=== PATIENT | male | born 1975 | race Caucasian/White ===

== ENCOUNTER → 2021-06-25 08:37 | Outpatient (CLI) | payer OTHER, SELFPAY ==
--- NOTE | ~2021-06-25 | CT_ITS ---
EXAMINATION: CT abdomen pelvis wo/w con DATE: 06/25/2021 09:30 INDICATION: Gross hematuria TECHNIQUE: Computed tomography (CT) of the abdomen and pelvis was performed without intravenous contr ast. CT of the abdomen and pelvis was then performed with a total of 130 mL Omnipaque-350 intravenous contrast using a double-bolus technique for simultaneous opacification of the renal parenchyma and r enal collecting system. Automated exposure control and iterative reconstruction technique were employ ed. The dose-length product was 2047.19 mGy-cm. COMPARISON: 03/30/2019 FINDINGS: Minimal dependent atelectasis in the bilateral lower lobes. Mild bronchiectasis in the bilateral lowe r lungs. Heart size is normal. No pericardial or pleural effusion. Liver, gallbladder, spleen, pancre as and bilateral adrenal glands are normal. Bilateral kidneys are normal with normal symmetric parenc hymal enhancement, no urolithiasis or hydronephrosis. The bilateral ureters are opacified in their en tirety on the delayed images with no evident urothelial irregularities. Bladder is normal. Bowels inc luding the appendix are normal. Prostatomegaly which is disproportionate for age measuring 6.0 x 5.9 x 5.4 cm. No free intraperitoneal gas or fluid. No pathologically enlarged abdominal or pelvic lympha denopathy. Bones are unremarkable. IMPRESSION: 1. Normal kidneys, ureters and bladder with no urolithiasis. 2. Prostatomegaly which is disproportionate for age and would correlate for either prostatitis or kevan vated PSA levels. Reviewed, dictated and finalized at location A. IMPRESSION: 1. Normal kidneys, ureters and bladder with no urolithiasis. 2. Prostatomegaly which is disproportionate for age and would correlate for eit her prostatitis or elevated PSA levels.
--- NOTE | ~2021-06-25 | XR_ITS ---
XR abdomen w oblique DATE: 06/25/2021 09:30 INDICATION: Gross hematuria TECHNIQUE: AP and bilateral oblique views COMPARISON: 06/25/2021 CT abdomen pelvis FINDINGS: There is mild bilateral hydroureteronephrosis, likely secondary to prostate enlargement dem onstrated on 06/25/2021 CT abdomen pelvis examination. No renal mass lesion or intraluminal filling defect of the renal collecting systems is noted. No uret eral or urinary bladder mass lesion is evident. Nonspecific bowel gas pattern without evidence of obstruction. The psoas shadows are intact. No visce romegaly is evident. IMPRESSION: Mild bilateral hydroureteronephrosis, likely secondary to prostate enlargement Reviewed, dictated and finalized at [facility]. Reviewed, dictated and finalized at location A.
[2021-06-25 08:58] LABS: Estimated Glomerular Filt Rate 50
== END ==
PROVIDERS: PCP Physician Assistant; Visit Provider Urology
DX: R31.0 Gross hematuria (principal)
CPT/HCPCS: 74021; 74178; Q9967

== ENCOUNTER 2021-09-26 09:30 | Outpatient (CLI) | payer OTHER, SELFPAY | END 2021-09-26 09:31 | disposition home or self-care (01) | LOC: ANHSURGERY 09:34 | PROVIDERS: PCP Physician Assistant; Visit Provider Urology | DX: R31.0 Gross hematuria (principal); Z01.812 Encounter for preprocedural laboratory examination | CPT/HCPCS: 87086 ==

== ENCOUNTER → 2021-10-04 00:09 | Outpatient (CLI) | payer OTHER, SELFPAY ==
[2021-10-04 19:57] LABS: SARS-CoV-2 RNA PCR Negative
== END ==
PROVIDERS: PCP Physician Assistant; Visit Provider Urology
DX: Z01.812 Encounter for preprocedural laboratory examination (principal); Z20.822 Contact with and (suspected) exposure to COVID-19
CPT/HCPCS: C9803; U0003; U0005

== ENCOUNTER 2021-10-07 02:44 | Day surgery (SDC) | payer OTHER, SELFPAY ==
[2021-09-23 14:11] VITALS: BMI 29.9
--- NOTE | 2021-09-23 14:24 | PC.NURSE ---
Addendum entered by Ciarra Kingsley RN 09/23/21 14:29: MEDICATIONS TO DISCONTINUE: VITAMINS DATE TO TAKE LAST DOSE: 10/03/21 Original Note: Report to the Outpatient Waiting Room, entrance under the [place] [facility] located off [facility], at time 1:00 on date 10/07/21. OR Time: 3:00. - You and your visitor will be asked a series of questions to screen for COVID 19 for your protection. - A mask is required within the hospital. - Only one visitor is allowed at this time. Patient visitors will be guided where to wait when not with patient. Preoperative COVID Testing Requirements: No COVID Test needed if: (proof is required; if not received patient will have Rapid Test prior to entry) - Patient has received COVID Vaccine at least 14 days prior to procedure date or - Patient has positive COVID test result within last 90 days of surgery date. COVID Test needed if above criteria is not met If not COVID vaccinated a COVID test must be conducted within 72 hours of surgery and patient is asked to isolate self from time of testing until procedure. You will go to the [facility] for your COVID testing. The [facility] is located at the corner of [address] [facility]. COVID TEST 10/04 AT 9:00 You will only be called if COVID results are positive and your surgeon may reschedule your elective surgery date. Patients may have clear liquids (water, carbonated beverages, clear teas, apple juice) until 3 hours prior to surgery with a maximum of 20 ounces. - No food from midnight until time of surgery - Infants may have breast milk until 4 hours before surgery, infant formula 6 hours prior to surgery. - Children will be allowed to drink immediately following surgery. If applicable, please bring a bottle or sippy cup to assist with drinking. Juice, water, soda, and popsicles are readily available. For infants on formula, please bring formula the day of surgery. Pacifiers are allowed. Take the following medications with a SIP of water the morning of surgery: N/A Medications to discontinue per physician: N/A Date to take last dose: N/A Please no make-up, nail [place] gu[place], hairspray, perfume, deodorant, or body powder the day of surgery. No jewelry (including any body piercings) or valuables the day of surgery, leave them at home. Please take a shower or bath the night before, or the morning of, surgery with an antibacterial soap. Wear comfortable, loose fitting clothing. Children are encouraged to wear pajamas. - Jewelry must be removed prior to entering the operating room. Rings and piercings that are not removed may be cut off. - The hospital will not accept responsibility for valuables. - Please leave all valuables, including medications, at home the day of surgery. If you are going home after surgery, a licensed otr company driver must drive you home. - NO public transportation without another adult. - We recommend that an adult stay with you for 24 hours following discharge. - We also recommend that you do not drive, make important decision, drink alcoholic beverages, or take any drugs that were not prescribed by your health care provider for at least 24 hours after your discharge time. For Pediatric surgeries, we recommend two adults accompany the child home (only one inside the building at this time). Follow any additional instructions given to you from your surgeon. Telephone instructions given to SABINO HARRY and asked if any additional questions and then verbalized understanding. Patient advised to call surgeon office or pre surgery nurse liaison [phone] if any additional questions.
[2021-10-07] VITALS (9 sets, daily range): BP systolic 98–121; BP diastolic 66–90; PULSE 81–95; RESP 11–20; TEMP 36.5–37.3; O2SAT 96–100
--- NOTE | ~2021-10-07 | XR_ITS ---
EXAMINATION: XR urethrocystogram EXAM DATE: 10/07/2021 14:46 INDICATION: Retrograde cystourethrogram. TECHNIQUE: Fluoroscopy used during XR urethrocystogram performed by Dr. Romulo Sarmiento MD. Radiologist was not present for the imaging or procedure. Total fluoroscopic time of 17 seconds. Th e DAP for this procedure was 0.28 mGym2. A total of 43 images sent to PACS from the exam. There is no prior study for comparison. FINDINGS: There is short segment urethral stenosis of the urethra at the penoscrotal junction. Diffu sely narrow lumen to the prosthetic urethra commonly seen. There is imaged demonstrating presumed dil ation catheter in the urethra. Correlate with procedure note. IMPRESSION: Fluoroscopy used during retrograde cystourethrogram, probable urethral dilation. Reviewed, dictated and finalized at location A. NETWORK ENGINEER IMPRESSION: Fluoroscopy used during retrograde cystourethrogram, probable ureth ral dilation.
[2021-10-07] MEDS: LACTATED RINGERS 1,000 ML 30 ML IV CONT (12:30)
--- NOTE | 2021-10-07 12:31 | WPDANESEPPF ---
Anes - Initial Pre Proc Eval Procedure: Operation Date: 10/07/21 15:00 Proposed Procedures p Cystoscopy, Retrograde Urethrogram, Urethral Dilation - Romulo Sarmiento MD Date/Time: 10/07/21 12:31 Surgeon: Romulo Sarmiento MD Pre Op Diagnosis: urethral stricture, gross hematuria Patient Data Age: 45 Gender: M Height: 1.83 m Weight: 100 kg Allergies Allergy/AdvReac Type Severity Reaction Status Date / Time No Known Drug Allergies Allergy Unknown Verified 09/23/21 14:11 Home Medications Medication Instructions Recorded Confirmed Type multivitamin 1 tablet PO DAILY 09/23/21 09/23/21 History Patient hx anesthesia problems: none Family hx anesthesia problems: none Results Review: All pre-operative results and documents have been reviewed as part of the pre-operative evaluation. [facility] Past Medical History Medical History (Updated 10/06/21 @ 13:16 by Nehemias Carter DO) NENITA (obstructive sleep apnea) undiagnosed Social History Social History Smoking status: Never smoker Alcohol intake: current Alcohol use details: 2/MONTH Substance use: never Substance use type: does not use Living arrangements: with family Spiritual care concerns: No Anes - Eval Final PreProcedure Day of Procedure 10/07/21 12:31 Patient weight: overweight Heart: regular rate and rhythm Lungs: clear to auscultation and normal air movement Airway: Mallampati scale class II Neurological: alert and oriented Last oral intake: >/= 8 hours ASA classification: II Emergent: no Anesthetic plan: proceed Anesthesia type and monitoring: general LMA and standard monitoring Results Review: All pre-operative results and documents have been reviewed as part of the pre-operative evaluation. Informed Consent: The patient's anesthetic plan and its attendant risks and benefits were discussed with the patient/family/POA. Questions were solicited and answers provided to the satisfaction of the patient/family/POA.
--- NOTE | 2021-10-07 13:51 | WPDHPUPDATE1 ---
History and Physical Update Update Date/Time: 10/07/21 13:51 History and Physical has been reviewed, including an updated exam of the patient. There are NO changes in the patient's condition. Risks, benefits, and alternatives have been discussed and questions answered. Patient agrees to proceed with procedure. Proceed with cystoscopy, retrograde urethrogram, urethral dilation
[2021-10-07] MEDS: ceFAZolin 2 GM/D5W 50 ML 2 GM/50 ML BAG IVPB (14:22)
[2021-10-07] MEDS: LIDOCAINE HCL 2% GEL UROJET 10 ML PKG MUCOUS MEM (14:42)
--- NOTE | 2021-10-07 14:53 | P.OP_ITS ---
Procedure Note - Detailed Date of Procedure 10/07/21 Pre-op Diagnosis urethral stricture, gross hematuria Post-op Diagnosis same Procedure Performed Retrograde urethrogram, cystoscopy, urethral dilation with am plants dilators to 24 [place], complex Todd catheter placement 20 [place] tip Surgeon Romulo Sarmiento MD Anesthesia general Description of Procedure Patient is taken to the operative suite correctly identified. Once anesthesia was obtained he was placed in dorsal lithotomy position and prepped and draped usual sterile fashion. Twenty-two [place] scope was inserted into the urethra. He has a fairly tight bulbar urethral stricture. Sixteen [place] red rubber catheter was placed into the meatus and retrograde urethrogram was performed. It was a short stricture and allowed contrast to get into the bladder. Superstiff wire was then passed to the bladder. Using Amplatz dilators we dilated up to 24 [place] without difficulty. Reinspection revealed an open channel although obvious scarring present. Prostate does have lateral lobe hypertrophy and a moderate-sized median lobe. The bladder has 2+ trabeculation without any evidence of tumors. Twenty [place] tip catheter was then passed over the wire. 10 cc were placed in balloon. I should state that 2% viscous lidocaine was inserted into the urethra prior to placement of Todd. He was taken recovery stable condition. He will be discharged home today. Instruction to remove the catheter on and follow up in 2-3 weeks time. Drains Yes Packing No Pathology none sent Complications No immediate complications Condition stable Disposition PACU
== END 2021-10-07 16:40 | disposition home or self-care (01) ==
PROVIDERS: PCP Physician Assistant; Visit Provider Urology
PROC: (CPT 52352; principal; 2021-10-07 15:00)
DX: N35.912 Unspecified bulbous urethral stricture, male (principal); R31.0 Gross hematuria; G47.33 Obstructive sleep apnea (adult) (pediatric)
CPT/HCPCS: 52281; 51610; 74450; 87086; A9270; C1726; C1769; C9803; J0690; J2250; J2405; J2704; J3010; J7120; Q9966; U0003; U0005

== ENCOUNTER 2022-08-07 15:58 | Outpatient (CLI) | payer OTHER, SELFPAY ==
--- NOTE | ~2022-08-07 | CT_ITS ---
EXAMINATION: CT soft tissue neck w con DATE: 08/07/2022 16:24 INDICATION: Right neck lump. Localized enlarged lymph nodes. TECHNIQUE: Computed tomography (CT) of the neck was performed with 75 mL Omnipaque-350 intravenous co ntrast. Automated exposure control and iterative reconstruction technique were employed. The dose-chante gth product was 451.42 mGy-cm. COMPARISON: None FINDINGS: There is a 19 x 14 mm high right internal jugular chain lymph node. There is a 10 x 18 mm r ight submandibular node. The cervical carotid arteries are normal. There is mucosal thickening in the maxillary sinuses. The mastoid air cells are normal. There is mild cervical spondylosis. IMPRESSION: 1. Mildly enlarged right neck lymph nodes. The differential diagnosis includes reactive lymphadenopat hy, shashank metastatic disease, and lymphoma. Ultrasound-guided core needle biopsy is recommended. Reviewed, dictated and finalized at location A. IMPRESSION: 1. Mildly enlarged right neck lymph nodes. The differential diagnosis includes reactive lymphadenopathy, shashank metastatic disease, and lymphoma. Ultrasound-gu ided core needle biopsy is recommended.
== END 2022-08-07 15:59 ==
LOC: MICIMG 16:01
PROVIDERS: PCP Physician Assistant; Visit Provider Physician Assistant
DX: R59.0 Localized enlarged lymph nodes (principal)
CPT/HCPCS: 70491; Q9967

== ENCOUNTER 2022-08-19 09:57 | Outpatient (CLI) | payer OTHER, SELFPAY ==
--- NOTE | ~2022-08-19 | US_ITS ---
EXAMINATION: US soft tissue head and neck DATE: 08/19/2022 10:57 INDICATION: Anterior cervical lymphadenopathy. TECHNIQUE: Multiple grayscale and Doppler ultrasound images of the head and neck were obtained. COMPARISON: Neck CT 08/07/2022 FINDINGS: There is a normal lymph node in superficial right parotid gland. The patient reports that t his node was previously enlarged and hard. Previously mildly enlarged right internal jugular and righ t submandibular lymph nodes are now normal in size. The patient reports that he no longer feels any a bnormal lumps. IMPRESSION: 1. Normal lymph nodes in right neck with interval decrease in size. The biopsy was canceled. Reviewed, dictated and finalized at location A.
== END 2022-08-19 09:58 | disposition home or self-care (01) ==
PROVIDERS: PCP Physician Assistant; Visit Provider Physician Assistant
DX: R59.0 Localized enlarged lymph nodes (principal)
CPT/HCPCS: 76536

== ENCOUNTER 2024-09-15 00:59 | Day surgery (SDC) | payer OTHER, SELFPAY ==
[2024-09-04 14:51] VITALS: BMI 29.9
[2024-09-15 09:32] VITALS: BP 126/80; PULSE 101; RESP 20; TEMP 36.3; O2SAT 100; BMI 29.1
[2024-09-15] MEDS: LACTATED RINGERS 1,000 ML 150 ML IV CONT (09:39)
--- NOTE | 2024-09-15 09:50 | WPDANESEPPF ---
Anes - Initial Pre Proc Eval Procedure: Operation Date: 09/15/24 10:30 Proposed Procedures p Screening Colonoscopy - Nick Drake MD Date/Time: 09/15/24 09:50 Surgeon: Nick Drake MD Pre Op Diagnosis: neoplasm screening Patient Data Age: 48 Gender: M Height: 1.83 m Weight: 97.4 kg Last Vital Signs Temp 36.3 C L 09/15/24 09:32 Pulse 101 H 09/15/24 09:32 Resp 20 09/15/24 09:32 BP 126/80 09/15/24 09:32 Pulse Ox 100 09/15/24 09:32 O2 Del Method Room Air 09/15/24 09:32 Allergies Allergy/AdvReac Type Severity Reaction Status Date / Time No Known Drug Allergies Allergy Unknown Verified 09/15/24 09:31 Home Medications Medication Instructions Recorded Confirmed Type multivitamin 1 tablet PO DAILY 09/23/21 09/15/24 History clonidine HCl 0.3 mg tablet 0.3 mg PO TID 09/04/24 09/15/24 History finasteride 5 mg tablet 5 mg PO DAILY 09/04/24 09/15/24 History hops 85 mg-blk cohosh 75 mg-rhod 1 cap PO DAILY 09/04/24 09/15/24 History 75 mg-flax 200mg-primro 100mg capsule organ concentrates 140 mg capsule 140 mg PO TID 09/04/24 09/15/24 History vitamin E 100 unit capsule 100 unit PO DAILY 09/04/24 09/15/24 History zinc 50 mg tablet 50 mg PO TID 09/04/24 09/15/24 History Patient hx anesthesia problems: none Family hx anesthesia problems: none Results Review: All pre-operative results and documents have been reviewed as part of the pre-operative evaluation. [facility] Past Medical History Medical History (Updated 09/14/24 @ 15:26 by Nehemias Carter DO) History of prostate cancer NENITA (obstructive sleep apnea) undiagnosed Social History Social History Smoking status: Never smoker Alcohol intake: current Alcohol use details: 2/MONTH Substance use: never Substance use type: does not use Living arrangements: with family Spiritual care concerns: No Anes - Eval Final PreProcedure Day of Procedure 09/15/24 09:50 Patient weight: overweight Heart: regular rate and rhythm Lungs: clear to auscultation Airway: Mallampati scale class II Neurological: alert and oriented Last oral intake: >/= 8 hours ASA classification: III Emergent: no Anesthetic plan: proceed Anesthesia type and monitoring: general GIVS and standard monitoring Results Review: All pre-operative results and documents have been reviewed as part of the pre-operative evaluation. Informed Consent: The patient's anesthetic plan and its attendant risks and benefits were discussed with the patient/family/POA. Questions were solicited and answers provided to the satisfaction of the patient/family/POA.
--- NOTE | 2024-09-15 10:33 | PM.IMHP ---
H&P: HPI History of Present Illness Date/Time: 09/15/24 10:33 Chief Complaint: Screening colonoscopy Narrative: This is the patient's first colonoscopy. There are no GI symptoms and there is no family history of colorectal cancer. the patient has a history of prostate cancer currently being under observation. Review of Systems Review of Systems: All systems reviewed & are unremarkable except as noted in HPI and below PMFSH Past Medical History Medical History (Updated 09/15/24 @ 10:34 by Nick Drake MD) History of prostate cancer NENITA (obstructive sleep apnea) undiagnosed Social History Social History Smoking status: Never smoker Alcohol intake: current Alcohol use details: 2/MONTH Substance use: never Substance use type: does not use Living arrangements: with family Spiritual care concerns: No Meds Home Medications and Allergies Home Medications Medication Instructions Recorded Confirmed Type multivitamin 1 tablet PO DAILY 09/23/21 09/15/24 History clonidine HCl 0.3 mg tablet 0.3 mg PO TID 09/04/24 09/15/24 History finasteride 5 mg tablet 5 mg PO DAILY 09/04/24 09/15/24 History hops 85 mg-blk cohosh 75 mg-rhod 1 cap PO DAILY 09/04/24 09/15/24 History 75 mg-flax 200mg-primro 100mg capsule organ concentrates 140 mg capsule 140 mg PO TID 09/04/24 09/15/24 History vitamin E 100 unit capsule 100 unit PO DAILY 09/04/24 09/15/24 History zinc 50 mg tablet 50 mg PO TID 09/04/24 09/15/24 History Allergies Allergy/AdvReac Type Severity Reaction Status Date / Time No Known Drug Allergies Allergy Unknown Verified 09/15/24 09:31 Vital Signs Vital Signs - 24 hr 09/15/24 09:32 Temperature 97.4 F L Pulse Rate 101 H Respiratory Rate 20 Blood Pressure 126/80 Pulse Oximetry 100 Oxygen Delivery Room Air Exam Const: General: cooperative and healthy appearing Resp: Effort & Inspection: normal respiratory effort and able to speak in complete sentences Auscultation: clear to auscultation bilaterally Cardio: Rate: regular rate Rhythm: regular rhythm GI: Inspection: normal to inspection GI Palp: No No hepatosplenomegaly present Auscultation: normal bowel sounds Rectal Exam: deferred Skin: General skin exam: normal color Psych: Appearance: grossly normal Mental Status: mental status grossly normal Assessment and Plan Assessment and plan (1) Screening for malignant neoplasm of colon: Code(s): Z12.11 - Encounter for screening for malignant neoplasm of colon Status: Acute Assessment and Plan: The patient is deemed a good candidate for the procedure. Consent signed. Will proceed.
[2024-09-15 11:00] VITALS: BP 109/75; PULSE 81; RESP 14; O2SAT 97
[2024-09-15 11:10] VITALS: BP 117/84; PULSE 80; RESP 18; O2SAT 99
[2024-09-15 11:20] VITALS: BP 120/82; PULSE 78; RESP 15; O2SAT 99
== END 2024-09-15 11:35 | disposition home or self-care (01) ==
PROVIDERS: PCP Physician Assistant; Visit Provider Internal Medicine Gastroenterology
PROC: 0DJD8ZZ Inspection of Lower Intestinal Tract, Via Natural or Artificial Opening Endoscopic (ICD-10-PCS; CPT 45378; principal; 2024-09-15 10:30)
DX: Z12.11 Encounter for screening for malignant neoplasm of colon (principal); K57.30 Diverticulosis of large intestine without perforation or abscess without bleeding; Z85.46 Personal history of malignant neoplasm of prostate
CPT/HCPCS: 45378; J2003; J2704; J7120